=== PATIENT | female | born 1950 | race American Indian/Alaskan Native ===

== ENCOUNTER 2016-11-23 08:53 | Outpatient (CLI) | payer MEDICAID ==
--- NOTE | 2016-11-23 10:09 | Mammography Report ---
Bilateral mammogram: Compared to 10/26/15. CAD study utilized. Findings: Predominance of adipose tissue bilaterally. Benign calcifications bilaterally. No mass or microcalcification. Normal axilla. Impression: Benign findings. Annual followup recommended. BI-RADS CATEGORY: 2 = Benign ACR BI-RADS MAMMOGRAPHIC CODES: 0 = Needs additional imaging evaluation; 1 = Negative; 2 = Benign; 3 = Probably benign; 4 = Suspicious; 5 = Malignant; 6 = Known biopsy-proven malignancy COMMENT: 1. Dense breast tissue, i.e., adenosis, fibrocystic changes, etc., may obscure an underlying neoplasm. 2. Approximately 10% of cancers are not detected with mammography. 3. A negative mammography report should not delay biopsy if a clinically suspicious mass is present. COMMENT: Patient follow-up letters are generated in [employer].
== END 2016-11-23 08:54 | disposition home or self-care (01) ==
LOC: MAMMO 08:53
PROVIDERS: ATTEND Internal Medicine
DX: Z12.31 Encounter for screening mammogram for malignant neoplasm of breast (principal)
CPT/HCPCS: 77067; G0202

== ENCOUNTER 2016-12-07 09:35 | Emergency (ER) | payer MEDICARE ==
[2016-12-07 09:44] VITALS: BP 139/79
[2016-12-07] MEDS ORDERED: BOOSTRIX IM ONE (12:53)
--- NOTE | 2016-12-07 12:55 | Emergency Department Report ---
- General Chief complaint: Urogenital-Female Stated complaint: KNOT ON VAGINIA Time Seen by Provider: 12/07/16 11:16 Source: patient Mode of arrival: Ambulatory Limitations: No Limitations - History of Present Illness Initial comments: This is a 66-year-old female nontoxic, well nourished in appearance, no acute signs of distress presents to the ED complaining of nodular abscess in her right groin region x3 days. Patient denies any trauma to the region. Patient denies any pus or drainage. Denies any vaginal discharge, chest pain, shortness of breath, numbness, tingling, fever, chills, nausea or vomiting. Patient describes pain as throbbing with level of 810. Patient denies any allergies. Denies any trauma to the region. Past medical history includes asthma, congestive heart failure, ABDs, hypertension, and seizures. MD complaint: abscess/boil -: Gradual, days(s) (3) Tetanus Up to Date: unsure Location: genitals (right grown region) Severity: mild Severity scale (0 -10): 8 Quality: other (throbbing) Consistency: constant Improves with: none Worsens with: none Associated symptoms: denies other symptoms Treatments Prior to Arrival: none - Related Data Home Medications Medication Instructions Recorded Confirmed Last Taken ARIPiprazole [Abilify TAB] 20 mg PO QDAY 10/31/14 04/25/15 04/24/15 Brimonidine 0.15% [Alphagan P 1 drops OP Q8H 10/31/14 04/24/15 04/24/15 0.15%] Famotidine [Pepcid] 20 mg PO BID 10/31/14 04/24/15 04/24/15 Furosemide [Lasix TAB] 40 mg PO QDAY 10/31/14 04/24/15 04/24/15 Latanoprost 0.005% [Xalatan 0.005%] 1 drop OP QPM 10/31/14 04/24/15 04/24/15 Olanzapine [OLANZapine] 10 mg PO QHS 10/31/14 04/25/15 04/24/15 Potassium Chloride [K-Dur] 10 meq PO QDAY 10/31/14 04/25/15 04/24/15 Simvastatin [Zocor TAB] 40 mg PO QHS 09/07/1004/24/15 04/24/15 Solifenacin Succinate [Vesicare] 5 mg PO QDAY 10/31/14 04/25/15 10/31/14 glipiZIDE [Glucotrol] 10 mg PO QDAY 10/31/14 04/25/15 04/24/15 lamoTRIgine [LaMICtal] 25 mg PO BID 10/31/14 04/25/15 04/24/15 Previous Rx's Medication Instructions Recorded Last Taken Type Azithromycin [Zithromax Z-MAKEDA] 1 tab PO DAILY #1 tab 10/31/14 Unknown Rx Gabapentin [Neurontin] 300 mg PO Q8HR #15 capsule 04/14/15 04/24/15 Rx Metoprolol [Lopressor TAB] 25 mg PO BID #60 tablet 04/29/15 Unknown Rx Sulfamethoxazole/Trimethoprim 1 each PO BID #14 tablet 12/07/16 Unknown Rx [Bactrim Ds Tablet] Allergies Allergy/AdvReac Type Severity Reaction Status Date / Time No Known Allergies Allergy Verified 04/14/15 08:13 Abscess Boil HPI - HPI Chief Complaint: Urogenital-Female Stated Complaint: KNOT ON VAGINIA Time Seen by Provider: 12/07/16 11:16 Home Medications: Home Medications Medication Instructions Recorded Confirmed Last Taken ARIPiprazole [Abilify TAB] 20 mg PO QDAY 10/31/14 04/25/15 04/24/15 Brimonidine 0.15% [Alphagan P 1 drops OP Q8H 10/31/14 04/24/15 04/24/15 0.15%] Famotidine [Pepcid] 20 mg PO BID 10/31/14 04/24/15 04/24/15 Furosemide [Lasix TAB] 40 mg PO QDAY 10/31/14 04/24/15 04/24/15 Latanoprost 0.005% [Xalatan 0.005%] 1 drop OP QPM 10/31/14 04/24/15 04/24/15 Olanzapine [OLANZapine] 10 mg PO QHS 10/31/14 04/25/15 04/24/15 Potassium Chloride [K-Dur] 10 meq PO QDAY 10/31/14 04/25/15 04/24/15 Simvastatin [Zocor TAB] 40 mg PO QHS 0904/24/15 04/24/15 Solifenacin Succinate [Vesicare] 5 mg PO QDAY 10/31/14 04/25/15 10/31/14 glipiZIDE [Glucotrol] 10 mg PO QDAY 10/31/14 04/25/15 04/24/15 lamoTRIgine [LaMICtal] 25 mg PO BID 10/31/14 04/25/15 04/24/15 Previous Rx's Medication Instructions Recorded Last Taken Type Azithromycin [Zithromax Z-MAKEDA] 1 tab PO DAILY #1 tab 10/31/14 Unknown Rx Gabapentin [Neurontin] 300 mg PO Q8HR #15 capsule 04/14/15 04/24/15 Rx Metoprolol [Lopressor TAB] 25 mg PO BID #60 tablet 04/29/15 Unknown Rx Sulfamethoxazole/Trimethoprim 1 each PO BID #14 tablet 12/07/16 Unknown Rx [Bactrim Ds Tablet] Allergies/Adverse Reactions: Allergies Allergy/AdvReac Type Severity Reaction Status Date / Time No Known Allergies Allergy Verified 04/14/15 08:13 ED Review of Systems ROS: Stated complaint: KNOT ON VAGINIA Other details as noted in HPI Constitutional: denies: chills, fever Eyes: denies: eye pain, eye discharge, vision change ENT: denies: ear pain, throat pain Respiratory: denies: cough, shortness of breath, wheezing Cardiovascular: denies: chest pain, palpitations Endocrine: no symptoms reported Gastrointestinal: denies: abdominal pain, nausea, diarrhea Genitourinary: denies: urgency, dysuria, discharge Musculoskeletal: denies: back pain, joint swelling, arthralgia Skin: denies: rash, lesions Neurological: denies: headache, weakness, paresthesias Psychiatric: denies: anxiety, depression Hematological/Lymphatic: denies: easy bleeding, easy bruising ED Past Medical Hx - Past Medical History Previous Medical History?: Yes Hx Hypertension: Yes ("a long time ago") Hx Heart Attack/AMI: No Hx Congestive Heart Failure: Yes Hx Diabetes: Yes Hx Deep Vein Thrombosis: No Hx Seizures: Yes Hx Psychiatric Treatment: Yes ("NERVOUS") Hx Asthma: Yes Hx Dementia: No Hx HIV: No Additional medical history: GLAUCOMA. CHOLESTEROL - Surgical History Past Surgical History?: Yes Hx Coronary Stent: No Hx Pacemaker: No Hx Internal Defibrillator: No Additional Surgical History: left arm s/p fx. tubal ligation - Social History Smoking Status: Never Smoker Substance Use Type: None - Medications Home Medications: Home Medications Medication Instructions Recorded Confirmed Last Taken Type ARIPiprazole [Abilify TAB] 20 mg PO QDAY 10/31/14 04/25/15 04/24/15 History Azithromycin [Zithromax Z-MAKEDA] 1 tab PO DAILY #1 tab 10/31/14 04/25/15 Unknown Rx Brimonidine 0.15% [Alphagan P 1 drops OP Q8H 10/31/14 04/24/15 04/24/15 History 0.15%] Famotidine [Pepcid] 20 mg PO BID 10/31/14 04/24/15 04/24/15 History Furosemide [Lasix TAB] 40 mg PO QDAY 10/31/14 04/24/15 04/24/15 History Latanoprost 0.005% [Xalatan 0.005%] 1 drop OP QPM 10/31/14 04/24/15 04/24/15 History Olanzapine [OLANZapine] 10 mg PO QHS 10/31/14 04/25/15 04/24/15 History Potassium Chloride [K-Dur] 10 meq PO QDAY 10/31/14 04/25/15 04/24/15 History Simvastatin [Zocor TAB] 40 mg PO QHS 10/31/14 04/24/15 04/24/15 History Solifenacin Succinate [Vesicare] 5 mg PO QDAY 10/31/14 04/25/15 10/31/14 History glipiZIDE [Glucotrol] 10 mg PO QDAY 10/31/14 04/25/15 04/24/15 History lamoTRIgine [LaMICtal] 25 mg PO BID 10/31/14 04/25/15 04/24/15 History Gabapentin [Neurontin] 300 mg PO Q8HR #15 capsule 04/14/15 04/24/15 04/24/15 Rx Metoprolol [Lopressor TAB] 25 mg PO BID #60 tablet 04/29/15 Unknown Rx Sulfamethoxazole/Trimethoprim 1 each PO BID #14 tablet 12/07/16 Unknown Rx [Bactrim Ds Tablet] ED Physical Exam - General Limitations: No Limitations General appearance: alert, in no apparent distress - Head Head exam: Present: atraumatic, normocephalic, normal inspection - Eye Eye exam: Present: normal appearance, PERRL, EOMI. Absent: scleral icterus, conjunctival injection, nystagmus, periorbital swelling, periorbital tenderness Pupils: Present: normal accommodation - ENT ENT exam: Present: normal exam, normal orophraynx, mucous membranes moist, TM's normal bilaterally, normal external ear exam - Neck Neck exam: Present: normal inspection, full ROM. Absent: tenderness, meningismus, lymphadenopathy, thyromegaly - Respiratory Respiratory exam: Present: normal lung sounds bilaterally. Absent: respiratory distress, wheezes, rales, rhonchi, stridor, chest wall tenderness, accessory muscle use, decreased breath sounds, prolonged expiratory - Cardiovascular Cardiovascular Exam: Present: regular rate, normal rhythm, normal heart sounds. Absent: systolic murmur, diastolic murmur, rubs, gallop - GI/Abdominal GI/Abdominal exam: Present: soft, normal bowel sounds. Absent: distended, tenderness, guarding, rebound, rigid, diminished bowel sounds - Rectal Rectal exam: Present: deferred - External exam: Present: normal external exam, other (1 cm by 1 cm nodular abscess. No fluctuance or induration noted. Tender to touch. No pus or drainage. Chaperoned Shameka cardroom worker present during exam). Absent: erythema, swelling, lesions, lacerations, ecchymosis, bleeding - Extremities Exam Extremities exam: Present: normal inspection, full ROM, normal capillary refill. Absent: tenderness, pedal edema, joint swelling, calf tenderness - Back Exam Back exam: Present: normal inspection, full ROM. Absent: tenderness, CVA tenderness (R), CVA tenderness (L), muscle spasm, paraspinal tenderness, vertebral tenderness, rash noted - Neurological Exam Neurological exam: Present: alert, oriented X3, CN II-XII intact, normal gait, reflexes normal - Psychiatric Psychiatric exam: Present: normal affect, normal mood - Skin Skin exam: Present: warm, dry, intact, normal color. Absent: rash ED Course Vital Signs 12/07/16 09:41 Temperature 98.4 F Pulse Rate 59 L Respiratory 22 Rate Blood Pressure 139/79 O2 Sat by Pulse 99 Oximetry - Reevaluation(s) Reevaluation #1: 12/07/16 12:56 Patient is speaking in full sentences with no signs of distress noted. ED Medical Decision Making - Medical Decision Making 66-year-old female that presents with nodular abscess. There is no induration or fluctuance was noted. There is no pus or drainage. I instructed patient to return 24 hours to reassess of the abscess. I also educated the patient that is abscess becomes more swelling that they may need to be lanced and associated return to emergency room as soon as possible. Patient received Bactrim at discharge. She received tetanus in the ED. Patient was instructed to follow-up with a primary care doctor in 3-5 days or if symptoms worsen and continue return to emergency room as soon as possible possible. Patient is hemodynamically stable with stable vital signs. Patient states he is feeling better. At time time of discharge, the patient does not seem toxic or ill in appearance. No acute signs of distress noted. Patient agrees to discharge treatment plan of care. No further questions noted by the patient. Critical care attestation.: If time is entered above; I have spent that time in minutes in the direct care of this critically ill patient, excluding procedure time. ED Disposition Clinical Impression: Abscess Disposition: DC-01 TO HOME OR SELFCARE Is pt being admited?: No Does the pt Need Aspirin: No Condition: Stable Instructions: Abscess (ED), Sulfamethoxazole/Trimethoprim (By mouth) Additional Instructions: Return in 24 hours for us to reassess you abscess. If you're abscess becomes more swelling or there is pus or drainage return to emergency room as soon as possible because her as may be needs to be lanced. Follow-up with a primary care doctor in 3-5 days or if symptoms worsen and continue return to emergency room as soon as possible possible. Prescriptions: Sulfamethoxazole/Trimethoprim [Bactrim Ds Tablet] 1 each PO BID #14 tablet Referrals: PRIMARY MD ITZ [Primary Care Provider] - 3-5 Days [place] RAM MD [Staff Physician] - 3-5 Days [facility] [Outside] - 3-5 Days [facility] [Outside] - 3-5 Days Forms: Work/School Release Form(ED)
== END 2016-12-07 13:13 | disposition home or self-care (01) ==
LOC: ED 09:35
DX: L02.211 Cutaneous abscess of abdominal wall (principal); I10 Essential (primary) hypertension; E11.9 Type 2 diabetes mellitus without complications; J45.909 Unspecified asthma, uncomplicated
CPT/HCPCS: 90471; 90715; 99282

== ENCOUNTER 2017-01-03 09:34 | Emergency (ER) | payer MEDICARE ==
[2017-01-03 10:02] VITALS: BP 135/73
[2017-01-03] MEDS ORDERED: NORCO 5/325 PO ONE (15:08)
--- NOTE | 2017-01-03 15:13 | Emergency Department Report ---
ED Extremity Problem HPI - General Chief complaint: Extremity Injury, Lower Stated complaint: RIGHT THIGH PAIN, KNOT ON BIG TOE Time Seen by Provider: 01/03/17 14:57 Source: patient Mode of arrival: Ambulatory Limitations: No Limitations - History of Present Illness Initial comments: PT comes from a personal correction from R leg pain x 2 weeks. PT states she also has pain at [facility]. PT states in 1995, she had to have her toe nails removed due to the same pain. PT denies injury or trauma. MD Complaint: extremity pain -: Gradual, week(s) (two) Location: right, lower extremity History of Same: No Severity scale (0 -10): 8 Quality: sharp, constant Consistency: constant Improves with: medication (ultram ) Worsens with: weight bearing, walking, palpation Associated Symptoms: denies: chest pain, rash - Related Data Home Medications Medication Instructions Recorded Confirmed Last Taken ARIPiprazole [Abilify TAB] 20 mg PO QDAY 10/31/14 04/25/15 04/24/15 Brimonidine 0.15% [Alphagan P 1 drops OP Q8H 10/31/14 04/24/15 04/24/15 0.15%] Famotidine [Pepcid] 20 mg PO BID 10/31/14 04/24/15 04/24/15 Furosemide [Lasix TAB] 40 mg PO QDAY 10/31/14 04/24/15 04/24/15 Latanoprost 0.005% [Xalatan 0.005%] 1 drop OP QPM 10/31/14 04/24/15 04/24/15 Olanzapine [OLANZapine] 10 mg PO QHS 10/31/14 04/25/15 04/24/15 Potassium Chloride [K-Dur] 10 meq PO QDAY 10/31/14 04/25/15 04/24/15 Simvastatin [Zocor TAB] 40 mg PO QHS 10/31/14 04/24/15 04/24/15 Solifenacin Succinate [Vesicare] 5 mg PO QDAY 10/31/14 04/25/15 10/31/14 glipiZIDE [Glucotrol] 10 mg PO QDAY 10/31/14 04/25/15 04/24/15 lamoTRIgine [LaMICtal] 25 mg PO BID 10/31/14 04/25/15 04/24/15 Previous Rx's Medication Instructions Recorded Last Taken Type Gabapentin [Neurontin] 300 mg PO Q8HR #15 capsule 04/14/15 04/24/15 Rx Metoprolol [Lopressor TAB] 25 mg PO BID #60 tablet 04/29/15 Unknown Rx methOCARBAMOL [Robaxin TAB] 500 mg PO BID PRN #10 tablet 01/03/17 Unknown Rx Allergies Allergy/AdvReac Type Severity Reaction Status Date / Time No Known Allergies Allergy Verified 04/14/15 08:13 ED Review of Systems ROS: Stated complaint: RIGHT THIGH PAIN, KNOT ON BIG TOE Other details as noted in HPI Comment: All other systems reviewed and negative Constitutional: denies: fever, malaise, weakness Gastrointestinal: denies: abdominal pain, nausea, vomiting Musculoskeletal: myalgia. denies: back pain Skin: denies: rash ED Past Medical Hx - Past Medical History Previous Medical History?: Yes Hx Hypertension: Yes ("a long time ago") Hx Heart Attack/AMI: No Hx Congestive Heart Failure: Yes Hx Diabetes: Yes Hx Deep Vein Thrombosis: No Hx Seizures: Yes Hx Psychiatric Treatment: Yes ("NERVOUS") Hx Asthma: Yes Hx Dementia: No Hx HIV: No Additional medical history: GLAUCOMA. CHOLESTEROL - Surgical History Past Surgical History?: Yes Hx Coronary Stent: No Hx Pacemaker: No Hx Internal Defibrillator: No Additional Surgical History: left arm s/p fx. tubal ligation - Social History Smoking Status: Never Smoker Substance Use Type: Prescribed - Medications Home Medications: Home Medications Medication Instructions Recorded Confirmed Last Taken Type ARIPiprazole [Abilify TAB] 20 mg PO QDAY 10/31/14 04/25/15 04/24/15 History Brimonidine 0.15% [Alphagan P 1 drops OP Q8H 10/31/14 04/24/15 04/24/15 History 0.15%] Famotidine [Pepcid] 20 mg PO BID 10/31/14 04/24/15 04/24/15 History Furosemide [Lasix TAB] 40 mg PO QDAY 10/31/14 04/24/15 04/24/15 History Latanoprost 0.005% [Xalatan 0.005%] 1 drop OP QPM 10/31/14 04/24/15 04/24/15 History Olanzapine [OLANZapine] 10 mg PO QHS 10/31/14 04/25/15 04/24/15 History Potassium Chloride [K-Dur] 10 meq PO QDAY 10/31/14 04/25/15 04/24/15 History Simvastatin [Zocor TAB] 40 mg PO QHS 10/31/14 04/24/15 04/24/15 History Solifenacin Succinate [Vesicare] 5 mg PO QDAY 10/31/14 04/25/15 10/31/14 History glipiZIDE [Glucotrol] 10 mg PO QDAY 10/31/14 04/25/15 04/24/15 History lamoTRIgine [LaMICtal] 25 mg PO BID 10/31/14 04/25/15 04/24/15 History Gabapentin [Neurontin] 300 mg PO Q8HR #15 capsule 04/14/15 04/24/15 04/24/15 Rx Metoprolol [Lopressor TAB] 25 mg PO BID #60 tablet 04/29/15 Unknown Rx methOCARBAMOL [Robaxin TAB] 500 mg PO BID PRN #10 tablet 01/03/17 Unknown Rx ED Physical Exam - General Limitations: No Limitations General appearance: alert, in no apparent distress, obese - Head Head exam: Present: atraumatic, normocephalic, normal inspection - Eye Eye exam: Present: normal appearance. Absent: conjunctival injection - ENT ENT exam: Present: normal exam, mucous membranes moist, normal external ear exam - Neck Neck exam: Present: normal inspection, full ROM. Absent: tenderness - Respiratory Respiratory exam: Present: normal lung sounds bilaterally. Absent: respiratory distress, chest wall tenderness - Cardiovascular Cardiovascular Exam: Present: regular rate, normal rhythm - GI/Abdominal GI/Abdominal exam: Present: soft. Absent: tenderness - Extremities Exam Extremities exam: Present: normal inspection, tenderness. Absent: pedal edema, calf tenderness - Expanded Lower Extremity Exam Right Hip exam: Present: normal inspection, full ROM, tenderness. Absent: swelling, abrasion, erythema, shortening Upper Leg exam: Present: normal inspection Knee exam: Present: normal inspection, full ROM Foot/Toe exam: Present: full ROM, swelling (callus noted to great toe ). Absent : tenderness, subungual hematoma Neuro vascular tendon exam: Present: no vascular compromise Left Hip exam: Present: normal inspection, full ROM. Absent: tenderness Foot/Toe exam: Present: normal inspection, full ROM, swelling (callus noted to great toe ). Absent: tenderness Neuro vascular tendon exam: Present: no vascular compromise - Back Exam Back exam: Present: normal inspection, full ROM - Neurological Exam Neurological exam: Present: alert, oriented X3, normal gait - Expanded Neurological Exam Expanded Patient oriented to: Present: person, place, time Speech: Present: fluid speech Best Eye Response ([place]): (4) open spontaneously Best Motor Response ([place]): (6) obeys commands Best Verbal Response (Adrianna): (5) oriented [place] Total: 15 - Psychiatric Psychiatric exam: Present: normal affect, normal mood - Skin Skin exam: Present: warm, dry, intact, normal color. Absent: rash, erythema ED Course Vital Signs 01/03/17 09:58 Temperature 98.6 F Pulse Rate 58 L Respiratory 18 Rate Blood Pressure 135/73 O2 Sat by Pulse 99 Oximetry - Reevaluation(s) Reevaluation #1: 01/03/17 15:17 PT aware of plan of care. Reevaluation #2: 01/03/17 16:35 PT aware of US and XR results. PT has no questions at this time. - Pulse Oximetry Interpretation Digit-Finger Initial Pulse Oximetry Readin Actions Taken: none ED Medical Decision Making - Radiology Data Radiology results: report reviewed XR hip- nap, mild lumbar degenerative changes US RLE- No DVT - Differential Diagnosis sciatica, oa, dvt Critical Care Time: No Critical care attestation.: If time is entered above; I have spent that time in minutes in the direct care of this critically ill patient, excluding procedure time. ED Disposition Clinical Impression: Callus of foot Sciatica Qualifiers: Laterality: right Qualified Code(s): M54.31 - Sciatica, right side Disposition: - TO HOME OR SELFCARE Is pt being admited?: No Does the pt Need Aspirin: No Condition: Stable Instructions: Sciatica (ED) Additional Instructions: Continue your home medications Follow up with Podiatry in 3-5 days Follow up with PCP in 3-5 days Prescriptions: methOCARBAMOL [Robaxin TAB] 500 mg PO BID PRN #10 tablet PRN Reason: Muscle Spasm Referrals: KALEY MOBLEY MD [Primary Care Provider] - 3-5 Days CATE CHAVEZ MD [Staff Physician] - 3-5 Days Time of Disposition: 16:44
--- NOTE | 2017-01-03 15:49 | XRay Report ---
RIGHT HIP RADIOGRAPHS INDICATION: Right hip pain, tenderness for 1 week. No known injury. COMPARISON: None similar. FINDINGS: An AP pelvic radiograph with frog-leg projection of the right hip demonstrate normal femoral head contour. Mild degenerative hip narrowing possible, right more than left. Imaged bilateral SI and hip joints appear intact. Nonobstructive bowel gas pattern. A 1.2 cm coiled spring-like density projecting in the right lower quadrant though nonspecific for being intrinsic versus outside the patient. Few pelvic phleboliths. Lower lumbar degenerative changes. CONCLUSION: No acute right hip radiographic abnormality with various degenerative changes noted as also a nonspecific spring-like density projecting in the right lower quadrant. Please correlate. Thank you for the opportunity to participate in this patient's care.
--- NOTE | 2017-01-04 14:20 | Vascular Lab Report ---
Right Lower Extremity Venous Duplex Study: Reason for Exam: Pain of the right lower extremity. Comments on the Right: All veins visualized are freely compressible without evidence of internal echogenicity. Flow is spontaneous and phasic throughout. No evidence of acute or chronic thrombus is seen in any of the vessels visualized. Comments on the Left: A limited duplex study was done of the proximal veins of the left lower extremity. All veins visualized are freely compressible without evidence of internal echogenicity. Flow is spontaneous and phasic throughout. No evidence of acute or chronic thrombus is seen in any of the vessels visualized. Impression: No evidence of acute or chronic deep venous thrombosis in the right lower extremity.
== END 2017-01-03 17:59 | disposition home or self-care (01) ==
LOC: ED 09:34
DX: L84 Corns and callosities (principal); M54.31 Sciatica, right side; I10 Essential (primary) hypertension; R56.9 Unspecified convulsions; J45.909 Unspecified asthma, uncomplicated; E78.00 Pure hypercholesterolemia, unspecified

== ENCOUNTER 2017-03-02 08:26 | Emergency (ER) | payer MEDICARE ==
[2017-03-02 08:55] VITALS: BP 146/89
[2017-03-02 09:50] LABS: Basophils # (Auto) 0.1 K/mm3 (0.0-0.1); Eosinophils # (Auto) 0.2 K/mm3 (0.0-0.4); Eosinophils % (Auto) 3.3 % (0.0-4.3); Hematocrit 35.1 % (30.3-42.9); Hemoglobin 11.2 gm/dl (10.1-14.3); Lymphocytes # (Auto) 1.4 K/mm3 (1.2-5.4); Lymphocytes % (Auto) 28.7 % (13.4-35.0); Mean Corpuscular HGB Conc 32 % (30-34); Mean Corpuscular Hemoglobin 31 pg (28-32); Mean Corpuscular Volume 97 fl (79-97); Monocytes # (Auto) 0.7 K/mm3 (0.0-0.8); Monocytes % (Auto) 14.3 % (0.0-7.3); Platelet Count 169 K/mm3 (140-440); Red Blood Count 3.62 M/mm3 (3.65-5.03); Red Cell Distribution Width 14.7 % (13.2-15.2)
[2017-03-02 09:59] LABS: Calcium 9.2 mg/dL (8.4-10.2)
--- NOTE | 2017-03-02 10:22 | XRay Report ---
Chest 2 views: History: Shortness of breath. Findings: Cardiomegaly. Trachea is midline. No consolidation, pneumothorax or pleural effusion. Impression: Cardiomegaly. No acute lung changes.
== END 2017-03-02 19:25 | disposition left against medical advice (07) ==
LOC: ED 08:26
DX: M79.1 Myalgia (principal); Z53.21 Procedure and treatment not carried out due to patient leaving prior to being seen by health care provider
CPT/HCPCS: 36415; 71046; 80048; 85025; 93005; 93010

== ENCOUNTER 2017-04-04 18:53 | Emergency (ER) | payer MEDICARE ==
[2017-04-04 19:12] VITALS: BP 203/110
== END 2017-04-05 00:05 | disposition left against medical advice (07) ==
LOC: ED 18:53
DX: R22.1 Localized swelling, mass and lump, neck (principal); Z53.21 Procedure and treatment not carried out due to patient leaving prior to being seen by health care provider

== ENCOUNTER 2017-04-24 16:37 | Emergency (ER) | payer MEDICARE ==
[2017-04-24] MEDS ORDERED: ASPIRIN PO ONE (16:58)
[2017-04-24] MEDS ORDERED: TYLENOL PO ONE (17:48)
--- NOTE | 2017-04-24 18:05 | XRay Report ---
FINAL REPORT EXAM: XR CHEST 1V AP HISTORY: chest pain TECHNIQUE: AP portable view of the chest PRIORS: None. FINDINGS: Lines, tubes, and devices: N/A Lungs and pleura: Trachea is normal in position. Linear scarring in the left midlung zone is seen laterally. Lungs are clear of infiltrate, pleural effusion, vascular congestion, or pneumothorax. Cardiomediastinal silhouette: Cardiac and mediastinal silhouettes are unremarkable. Other: Bony structures are intact. IMPRESSION: No acute cardiopulmonary process seen.
[2017-04-24 18:14] LABS: Basophils % (Auto) 0.9 % (0.0-1.8); Eosinophils # (Auto) 0.1 K/mm3 (0.0-0.4); Eosinophils % (Auto) 1.2 % (0.0-4.3); Hematocrit 35.5 % (30.3-42.9); Hemoglobin 11.4 gm/dl (10.1-14.3); Lymphocytes # (Auto) 1.4 K/mm3 (1.2-5.4); Lymphocytes % (Auto) 24.5 % (13.4-35.0); Mean Corpuscular HGB Conc 32 % (30-34); Mean Corpuscular Hemoglobin 30 pg (28-32); Mean Corpuscular Volume 94 fl (79-97); Monocytes # (Auto) 0.6 K/mm3 (0.0-0.8); Monocytes % (Auto) 10.9 % (0.0-7.3); Platelet Count 189 K/mm3 (140-440); Red Blood Count 3.77 M/mm3 (3.65-5.03); Red Cell Distribution Width 14.2 % (13.2-15.2)
[2017-04-24 18:26] LABS: BUN/Creatinine Ratio 20; Blood Urea Nitrogen 30 mg/dL (7-17); Calcium 9.4 mg/dL (8.4-10.2); Hemolysis Index 14
[2017-04-24] MEDS ORDERED: NACL 0.9% 500 ML 500 ML IV ONE (22:33)
--- NOTE | 2017-04-25 00:29 | Emergency Department Report ---
HPI - General Chief Complaint: Chest Pain Time Seen by Provider: 04/24/17 17:26 - HPI HPI: The patient's is a 66-year-old female presents for evaluation of chest pain. The patient reports chest pain for the past 2-3 days, mild in severity, right- sided in location, aching in quality, radiating to the right arm, and is exacerbated with movement. The patient denies fever, cough, syncope, hemoptysis , unilateral leg swelling, recent immobilization, history of DVT or PE, recent cancer. ED Past Medical Hx - Past Medical History Previous Medical History?: Yes Hx Hypertension: Yes Hx Heart Attack/AMI: No Hx Congestive Heart Failure: Yes Hx Diabetes: Yes Hx Deep Vein Thrombosis: No Hx Seizures: Yes Hx Psychiatric Treatment: Yes ("NERVOUS") Hx Asthma: Yes Hx Dementia: No Hx HIV: No Additional medical history: GLAUCOMA. CHOLESTEROL. brochitis - Surgical History Hx Coronary Stent: No Hx Pacemaker: No Hx Internal Defibrillator: No Additional Surgical History: left arm s/p fx. tubal ligation - Social History Smoking Status: Never Smoker Substance Use Type: None - Medications Home Medications: Home Medications Medication Instructions Recorded Confirmed Last Taken Type Olanzapine [OLANZapine] 10 mg PO QHS 10/31/14 04/16/17 04/16/17 History Simvastatin [Zocor TAB] 40 mg PO QHS 10/31/14 04/16/17 04/16/17 History Albuterol Sulfate [Proventil Hfa] 6.7 gm IH PRN 04/16/17 04/16/17 04/16/17 History Fluticasone [Flonase] 1 spray NS QDAY 04/16/17 04/16/17 04/16/17 History Gabapentin [Neurontin] 100 mg PO Q8HR 04/16/17 04/16/17 04/16/17 History Omeprazole 20 mg PO DAILY 04/16/17 04/16/17 04/16/17 History Topiramate [Topamax] 100 mg PO QAM 04/16/17 04/16/17 04/16/17 History lamoTRIgine [LaMICtal] 100 mg PO BID 04/16/17 04/16/17 04/16/17 History Aspirin [Lo-Dose Aspirin EC] 81 mg PO DAILY #30 tablet. 04/22/17 Unknown Rx Carvedilol [Coreg] 3.125 mg PO BID #60 tablet 04/22/17 Unknown Rx Glimepiride [Amaryl] 2 mg PO QDDIAB #60 tablet 04/22/17 Unknown Rx LORazepam [Ativan] 1 mg PO BID #7 tablet 04/22/17 Unknown Rx NIFEdipine XL [Procardia Xl] 90 mg PO QDAY #60 tablet 04/22/17 Unknown Rx hydrALAZINE [Apresoline TAB] 100 mg PO TID #90 tab 04/22/17 Unknown Rx oxyCODONE /ACETAMINOPHEN [Percocet 1 tab PO Q6H PRN #14 tablet 04/22/17 Unknown Rx 5/325 mg] ED Review of Systems ROS: Stated complaint: CHEST PAIN Other details as noted in HPI Constitutional: denies: fever ENT: denies: throat or neck pain Respiratory: denies: cough, shortness of breath Cardiovascular: reports chest pain Endocrine: denies unexplained weight loss or gain Gastrointestinal: denies: abdominal pain, nausea Genitourinary: denies: dysuria Musculoskeletal: denies: leg swelling Skin: denies: rash Neurological: denies: headache Hematological/Lymphatic: denies: easy bleeding or easy bruising Psych: denies sadness or hopelessness Physical Exam - Physical Exam Vital Signs: Vital Signs 04/24/17 04/24/17 04/24/17 17:16 17:17 18:30 Temperature 97.9 F Pulse Rate 56 L 56 L 68 Respiratory 14 12 16 Rate Blood Pressure 192/95 Blood Pressure 179/89 [Right] O2 Sat by Pulse 95 100 Oximetry Physical Exam: General: well-nourished, well-developed, no acute distress Head: Normocephalic, atraumatic Eyes: normal sclera ENT: Mucous membranes are pink and moist Neck: trachea midline, neck supple, No neck stiffness, no cervical adenopathy Respiratory: Breath sounds equal bilaterally, no wheezing, rales, or rhonchi Cardio: S1 and S2 present, no murmurs, rubs, gallops, capillary refill is brisk Abdomen: Normoactive bowel sounds, soft abdomen, no rigidity, no guarding or rebound tenderness Chest WALL/Back: No tenderness to palpation of the chest wall, no CVA tenderness with percussion Musc: No pitting edema Skin: No rash Neuro: no facial drooping, normal speech Psych: Normal affect ED Course Vital Signs 04/24/17 04/24/17 04/24/17 17:16 17:17 18:30 Temperature 97.9 F Pulse Rate 56 L 56 L 68 Respiratory 14 12 16 Rate Blood Pressure 192/95 Blood Pressure 179/89 [Right] O2 Sat by Pulse 95 100 Oximetry ED Medical Decision Making - Lab Data Result diagrams: 04/24/17 17:59 04/24/17 17:59 - Medical Decision Making The patient was seen and examined by myself. The patient is placed on a cardiac cath tech and continuous pulse ox. On initial evaluation, the patient was found to be in no distress. Evaluation orders were placed. Medical records were reviewed and revealed that the patient received a negative stress test and low probability ventilation/perfusion scan for PE 3 days ago during hospital stay here. EKG was negative for findings suggestive of acute cardiac infarct. Labs and imaging are obtained. Chest x-ray is negative for pneumothorax, focal consolidation, pulmonary vascular congestion, pleural effusion, or other obvious acute cardiopulmonary disease process. Lab results exhibited mildly elevated creatinine 1.5, consistent with the patient's history of chronic kidney disease, and otherwise labs were non-concerning including levels of troponin, WBC, hemoglobin, hematocrit, electrolytes, renal function. The patient was reevaluated and reported that their symptoms were markedly improved. The patient has no chest pain whatsoever. The patient is stable for discharge with outpatient follow-up. The patient is given follow-up and return instructions. The patient expressed understanding and agreed with the plan. The patient is discharged in stable condition. Critical care attestation.: If time is entered above; I have spent that time in minutes in the direct care of this critically ill patient, excluding procedure time. ED Disposition Clinical Impression: Acute chest pain, Dehydration, mild, CKD (chronic kidney disease), stage I Disposition: DC-01 TO HOME OR SELFCARE Is pt being admited?: No Does the pt Need Aspirin: No Condition: Stable Instructions: Chest Pain (ED), Costochondritis (ED) Referrals: PRIMARY CARE, [Primary Care Provider] - 3-5 Days ELENA MCCORMICK MD [Staff Physician] - 3-5 Days Time of Disposition: 00:25
[2017-04-25 00:57] VITALS: BP 173/83
--- NOTE | 2017-04-25 01:41 | Emergency Department Report ---
Blank Doc - Documentation Documentation: I was asked by the nurse to evaluate Ms. Frank before discharge. Nurse is concerning about the shaking that patient has been having since she got to the hospital and that was not pain addressed. Caregiver at bedside stating that patient has been having this shaking for the last 2-3 days. She is complaining of right thigh pain and according to her caregiver this is how her chronic pain. Patient has history of seizure on Lamictal and Topamax. Patient is talking and answering question appropriately. CT brain and a UA was ordered. Shaking movement is completely stopped by Ativan. CT brain is negative for acute finding. Patient discharged home as planned by Dr. Hooper. Referring Physician: IRMA WEATHERS Patient Name: KRYSTINA ZUNIGA Date of : 1950 Sex: Female Report Date: 2017-04-25 Report Status: [place] [address] Cat Scan Report Signed Patient: KRYSTINA ZUNIGA MR#: [id number] : 1950 Acct:[id number] Age/Sex: 66 / F ADM Date: 04/24/17 Loc: ED Attending Dr: Ordering Physician: IRMA WEATHERS Date of Service: 04/25/17 Procedure(s): CT head/brain wo con Accession Number(s): [id number] cc: IRMA WEATHERS FINAL REPORT EXAM: CT HEAD/BRAIN WO CON HISTORY: seizure COMPARISON: None available. TECHNIQUE: Axial images obtained skull base through vertex. FINDINGS: No acute intracranial hemorrhage, midline shift or pathologic extra axial fluid collection. Age related volume loss with compensatory dilatation of the ventricular system and chronic small vessel ischemic disease. Otherwise, florentino-white differentiation preserved. Calvarium grossly intact. Mild mucosal thickening the paranasal sinuses. Mastoid air cells are clear. IMPRESSION: No grossly acute intracranial abnormality. Mild age related volume loss and chronic small vessel ischemic disease. Transcribed By: HUNG Dictated By: MARCELA ROSE MD Electronically Authenticated By: MARCELA ROSE MD Signed Date/Time: 04/25/17256 DD/ 6 TD/TT: 04/25/17256
[2017-04-25] MEDS ORDERED: ATIVAN ONE (01:58)
[2017-04-25] MEDS ORDERED: ATIVAN IM ONE (02:02)
[2017-04-25 02:09] LABS: Bacteria,Urine 2+ /HPF (Negative); Bilirubin,Urine NEG (Negative); Blood,Urine NEG (Negative); Color,Urine Straw (Yellow); RBC,Urine < 1.0 /HPF (0.0-6.0); Urobilinogen,Urine < 2.0 mg/dL (<2.0)
--- NOTE | 2017-04-25 03:01 | Cat Scan Report ---
FINAL REPORT EXAM: CT HEAD/BRAIN WO CON HISTORY: seizure COMPARISON: None available. TECHNIQUE: Axial images obtained skull base through vertex. FINDINGS: No acute intracranial hemorrhage, midline shift or pathologic extra axial fluid collection. Age related volume loss with compensatory dilatation of the ventricular system and chronic small vessel ischemic disease. Otherwise, florentino-white differentiation preserved. Calvarium grossly intact. Mild mucosal thickening the paranasal sinuses. Mastoid air cells are clear. IMPRESSION: No grossly acute intracranial abnormality. Mild age related volume loss and chronic small vessel ischemic disease.
== END 2017-04-25 08:55 | disposition home or self-care (01) ==
LOC: ED 16:37
DX: E86.0 Dehydration (principal); E11.22 Type 2 diabetes mellitus with diabetic chronic kidney disease; I13.0 Hypertensive heart and chronic kidney disease with heart failure and stage 1 through stage 4 chronic kidney disease, or unspecified chronic kidney disease; N18.1 Chronic kidney disease, stage 1; I50.9 Heart failure, unspecified; H40.9 Unspecified glaucoma; R56.9 Unspecified convulsions; Z98.51 Tubal ligation status
CPT/HCPCS: 36415; 70450; 71045; 80048; 81001; 84484; 85025; 93005; 93010; 96372; 99285; J2060

== ENCOUNTER 2017-05-23 13:16 | Outpatient (CLI) | payer MEDICARE ==
[2017-05-23 14:23] LABS: Albumin 3.9 g/dL (3.9-5); Calcium 8.9 mg/dL (8.4-10.2)
[2017-05-23 18:26] LABS: Bacteria,Urine 1+ /HPF (Negative); Bilirubin,Urine NEG (Negative); Blood,Urine NEG (Negative); Color,Urine Yellow (Yellow); Protein,Urine <15 mg/dL mg/dL (Negative); RBC,Urine < 1.0 /HPF (0.0-6.0); Urobilinogen,Urine < 2.0 mg/dL (<2.0)
== END 2017-05-23 13:17 | disposition home or self-care (01) ==
LOC: LAB 13:16
PROVIDERS: ATTEND Internal Medicine Nephrology
DX: N17.9 Acute kidney failure, unspecified (principal); I11.0 Hypertensive heart disease with heart failure; I50.9 Heart failure, unspecified; E11.9 Type 2 diabetes mellitus without complications; E78.00 Pure hypercholesterolemia, unspecified; J45.909 Unspecified asthma, uncomplicated
CPT/HCPCS: 36415; 80048; 81001; 82040; 84100

== ENCOUNTER 2017-11-26 11:32 | Outpatient (CLI) | payer MEDICARE ==
--- NOTE | 2017-11-26 13:54 | Mammography Report ---
BILATERAL DIGITAL SCREENING MAMMOGRAM with CAD: 11/26/17 11:32:00 CLINICAL: Routine screening. COMPARISON:01/03/17 FINDINGS: The breasts are almost entirely fatty. No mass, architectural distortion or suspicious calcifications. IMPRESSION: No mammographic evidence of malignancy. BI-RADS CATEGORY: 2 -- Benign RECOMMENDATION: Routine mammographic screening in one year. COMMENT: Patient follow-up letters are generated by our [employer] application.
== END 2017-11-26 11:33 | disposition home or self-care (01) ==
LOC: MAMMO 11:32
PROVIDERS: ATTEND Internal Medicine
DX: Z12.31 Encounter for screening mammogram for malignant neoplasm of breast (principal); E11.9 Type 2 diabetes mellitus without complications; E78.5 Hyperlipidemia, unspecified; I11.0 Hypertensive heart disease with heart failure; I50.9 Heart failure, unspecified; E78.00 Pure hypercholesterolemia, unspecified; J45.909 Unspecified asthma, uncomplicated
CPT/HCPCS: 77067

== ENCOUNTER 2018-09-22 11:06 | Emergency (ER) | payer MEDICARE ==
--- NOTE | 2018-09-22 12:57 | Emergency Department Report ---
ED General Adult HPI - General Chief complaint: Abdominal Pain Stated complaint: BOTH LEGS NUMB/ABD PAIN Time Seen by Provider: 09/22/18 11:56 Source: EMS Mode of arrival: Stretcher Limitations: No Limitations - History of Present Illness Initial comments: 67 year old female the past medical history diabetes and hypertension presents to the hospital complaints of painful rash to lower abdomen in groin area time 5 days and numbness to bilateral thigh since last night. Patient was given a cream to apply to her lower abdomen/groin rash which she has been using for the past 3 days. She ran out of cream last night and states that the rash is getting worse rather than better. It is painful to touch. Says last night she had intermittent bilateral thigh numbness. The numbness is not extend below the knee. He complains of ongoing lower back pain for the last 3 months without any reported trauma or injury. She denies urinary or fecal incontinence, inability to walk, or leg weakness. - Related Data Home Medications Medication Instructions Recorded Confirmed Last Taken OLANZapine 10 mg PO QHS 10/31/14 04/16/17 04/16/17 Simvastatin [Zocor TAB] 40 mg PO QHS 10/31/14 04/16/17 04/16/17 Albuterol Sulfate [Proventil Hfa] 6.7 gm IH PRN 04/16/17 04/16/17 04/16/17 Fluticasone [Flonase] 1 spray NS QDAY 04/16/17 04/16/17 04/16/17 Gabapentin [Neurontin] 100 mg PO Q8HR 04/16/17 04/16/17 04/16/17 Omeprazole 20 mg PO DAILY 04/16/17 04/16/17 04/16/17 Topiramate [Topamax] 100 mg PO QAM 04/16/17 04/16/17 04/16/17 lamoTRIgine [LaMICtal] 100 mg PO BID 04/16/17 04/16/17 04/16/17 Previous Rx's Medication Instructions Recorded Last Taken Type Aspirin [Lo-Dose Aspirin EC] 81 mg PO DAILY #30 tablet. 04/22/17 Unknown Rx Carvedilol [Coreg] 3.125 mg PO BID #60 tablet 04/22/17 Unknown Rx Glimepiride [Amaryl] 2 mg PO QDDIAB #60 tablet 04/22/17 Unknown Rx LORazepam [Ativan] 1 mg PO BID #7 tablet 04/22/17 Unknown Rx NIFEdipine XL [Procardia Xl] 90 mg PO QDAY #60 tablet 04/22/17 Unknown Rx hydrALAZINE [Apresoline TAB] 100 mg PO TID #90 tab 04/22/17 Unknown Rx oxyCODONE /ACETAMINOPHEN [Percocet 1 tab PO Q6H PRN #14 tablet 04/22/17 Unknown Rx 5/325 mg] Clotrimazole 1% [Lotrimin 1%] 1 applic TP BID 30 Days tube 09/22/18 Unknown Rx Fluconazole [Diflucan TAB] 150 mg PO QWEEK #4 tablet 09/22/18 Unknown Rx traMADol [Ultram 50 MG tab] 50 mg PO Q6HR PRN #20 tablet 09/22/18 Unknown Rx Allergies Allergy/AdvReac Type Severity Reaction Status Date / Time No Known Allergies Allergy Verified 04/16/17 11:11 ED Review of Systems ROS: Stated complaint: BOTH LEGS NUMB/ABD PAIN Other details as noted in HPI Comment: All other systems reviewed and negative ED Past Medical Hx - Past Medical History Hx Hypertension: Yes Hx Heart Attack/AMI: No Hx Congestive Heart Failure: Yes Hx Diabetes: Yes Hx Deep Vein Thrombosis: No Hx Seizures: Yes Hx Psychiatric Treatment: Yes ("NERVOUS") Hx Asthma: Yes Hx Dementia: No Hx HIV: No Additional medical history: GLAUCOMA. CHOLESTEROL. brochitis - Surgical History Hx Coronary Stent: No Hx Pacemaker: No Hx Internal Defibrillator: No Additional Surgical History: left arm s/p fx. tubal ligation - Social History Smoking Status: Never Smoker - Medications Home Medications: Home Medications Medication Instructions Recorded Confirmed Last Taken Type OLANZapine 10 mg PO QHS 10/31/14 04/16/17 04/16/17 History Simvastatin [Zocor TAB] 40 mg PO QHS 10/31/14 04/16/17 04/16/17 History Albuterol Sulfate [Proventil Hfa] 6.7 gm IH PRN 04/16/17 04/16/17 04/16/17 History Fluticasone [Flonase] 1 spray NS QDAY 04/16/17 04/16/17 04/16/17 History Gabapentin [Neurontin] 100 mg PO Q8HR 04/16/17 04/16/17 04/16/17 History Omeprazole 20 mg PO DAILY 04/16/17 04/16/17 04/16/17 History Topiramate [Topamax] 100 mg PO QAM 04/16/17 04/16/17 04/16/17 History lamoTRIgine [LaMICtal] 100 mg PO BID 04/16/17 04/16/17 04/16/17 History Aspirin [Lo-Dose Aspirin EC] 81 mg PO DAILY #30 tablet. 04/22/17 Unknown Rx Carvedilol [Coreg] 3.125 mg PO BID #60 tablet 04/22/17 Unknown Rx Glimepiride [Amaryl] 2 mg PO QDDIAB #60 tablet 04/22/17 Unknown Rx LORazepam [Ativan] 1 mg PO BID #7 tablet 04/22/17 Unknown Rx NIFEdipine XL [Procardia Xl] 90 mg PO QDAY #60 tablet 04/22/17 Unknown Rx hydrALAZINE [Apresoline TAB] 100 mg PO TID #90 tab 04/22/17 Unknown Rx oxyCODONE /ACETAMINOPHEN [Percocet 1 tab PO Q6H PRN #14 tablet 04/22/17 Unknown Rx 5/325 mg] Clotrimazole 1% [Lotrimin 1%] 1 applic TP BID 30 Days tube 09/22/18 Unknown Rx Fluconazole [Diflucan TAB] 150 mg PO QWEEK #4 tablet 09/22/18 Unknown Rx traMADol [Ultram 50 MG tab] 50 mg PO Q6HR PRN #20 tablet 09/22/18 Unknown Rx ED Physical Exam - General Limitations: No Limitations - Other Other exam information: General: No limitations, patient is alert in no acute distress Head exam: Atraumatic, normocephalic Eyes exam: Normal appearance, pupils equal reactive to light, extraocular movements intact ENT: Moist mucous membrane, normal oropharynx Neck exam: Normal inspection, full range of motion, no meningismus nontender Respiratory exam: Clear to auscultation bilateral, no wheezes, rales, crackles Cardiovascular: Normal rate and rhythm Abdomen: Soft, nondistended, and nontender, with normal bowel sounds, no rebound, or guarding Extremity: Full range of motion normal inspection no deformity Back: Normal Inspection, full range of motion, no tenderness Neurologic: Alert, oriented x3, cranial nerves intact, no motor deficit. Decrease sensation to touch and pin prick at the anterior and anterior lateral thighs corresponding to the L1-L2 dermatomes of both legs. Sensation to the rest of the thigh and leg intact. Psychiatric: normal affect, normal mood Skin: Patient has intertriginous dermatitis of the lower abdominal and inguinal area. area is red with some superficial abrasions. malodoous. white cream in some areas (placed by pt last night) ED Course Vital Signs 09/22/18 09/22/18 09/22/18 12:07 12:31 13:14 Temperature 98.4 F Pulse Rate 74 68 Respiratory 18 18 18 Rate Blood Pressure 136/64 Blood Pressure 126/62 134/62 [Right] O2 Sat by Pulse 100 100 Oximetry 09/22/18 09/22/18 14:34 15:19 Temperature Pulse Rate 74 62 Respiratory 18 18 Rate Blood Pressure Blood Pressure 128/65 134/68 [Right] O2 Sat by Pulse 100 100 Oximetry - Consultations Consultation #1: 09/22/18 15:39 case d/w with Dr Tadeo dave, oupt f/u appropriate. pt june f/u in office for further workup. ED Medical Decision Making - Lab Data Result diagrams: 09/22/18 13:11 09/22/18 13:11 Lab Results 09/22/18 09/22/18 09/22/18 Range/Units 13:11 13:11 13:13 WBC 6.3 (4.5-11.0) K/mm3 RBC 3.99 (3.65-5.03) M/mm3 Hgb 12.3 (10.1-14.3) gm/dl Hct 38.5 (30.3-42.9) % MCV 96 (79-97) fl MCH 31 (28-32) pg MCHC 32 (30-34) % RDW 14.3 (13.2-15.2) % Plt Count 149 (140-440) K/mm3 Lymph % (Auto) 16.7 (13.4-35.0) % Branch % (Auto) 11.9 H (0.0-7.3) % Eos % (Auto) 1.0 (0.0-4.3) % Baso % (Auto) 0.5 (0.0-1.8) % Lymph # 1.0 L (1.2-5.4) K/mm3 Branch # 0.8 (0.0-0.8) K/mm3 Eos # 0.1 (0.0-0.4) K/mm3 Baso # 0.0 (0.0-0.1) K/mm3 Seg Neutrophils % 69.9 (40.0-70.0) % Seg Neutrophils # 4.4 (1.8-7.7) K/mm3 Sodium 141 (137-145) mmol/L Potassium 4.0 (3.6-5.0) mmol/L Chloride 103.0 (98-107) mmol/L Carbon Dioxide 25 (22-30) mmol/L Anion Gap 17 mmol/L BUN 23 H (7-17) mg/dL Creatinine 2.1 H (0.7-1.2) mg/dL Estimated GFR 29 ml/min BUN/Creatinine Ratio 11 % Glucose 125 H (65-100) mg/dL Calcium 9.5 (8.4-10.2) mg/dL Magnesium 2.10 (1.7-2.3) mg/dL Total Bilirubin 0.20 (0.1-1.2) mg/dL Direct Bilirubin < 0.2 (0-0.2) mg/dL Indirect Bilirubin 0.0 mg/dL AST 11 (5-40) units/L ALT 8 (7-56) units/L Alkaline Phosphatase 88 (35-129) units/L Total Protein 8.6 H (6.3-8.2) g/dL Albumin 4.2 (3.9-5) g/dL Albumin/Globulin Ratio 1.0 % - Radiology Data Radiology results: report reviewed CLINICAL DATA: lower back pain, b/l thigh numbness TECHNICAL DATA: AP and lateral views lumbar spine. FINDINGS: The bone mineralization is decreased. Multiple compression fractures are present involving the lumbar spine, age difficult to determine. Intervertebral disc spaces are well maintained except for narrowing L5-S1. Pedicles and spinous processes are normal in alignment. SI joints and sacrum are normal. IMPRESSION: Multiple compression fractures lumbar spine age difficult to determine. MR would be of benefit for further evaluation CT lumbar spine wo con INDICATION / CLINICAL INFORMATION: 67 years Female; back pain (chronic), new b/l anterior thigh numb. TECHNIQUE: Axial CT images of the lumbar spine were obtained. Sagittal and coronal reformatted images were produced. All CT scans at this location are performed using CT dose reduction for ALARA by means of automated exposure control. COMPARISON: None available. FINDINGS: POST-SURGICAL CHANGES: None. ALIGNMENT: There is dextroscoliosis seen with apex at L2. Straightening of the lumbar spine noted. VERTEBRAE: There is loss of height at virtually every level in the lumbar spine, most findings be related to large Schmorl's node superiorly. These findings may be on a chronic degenerative basis. No definitive signs of acute compression seen, although STIR imaging by MRI would be the most sensitive test for evaluating for an acute or subacute injury. [id number] ANALYSIS: Disc space narrowing and desiccation seen at L5-S1. T12-L1: Mild facet hypertrophy. Small, broad-based foraminal disc trusion on the right without significant sequela. L1-2: Mild disc bulge and [id number] facet hypertrophy. Mild thecal sac narrowing. Mild foraminal narrowing-findings are slightly greater on the left. There is encroachment upon the left L1 nerve without impingement. L2-3: Mild to moderate disc bulge and whwz-el-hcfgaudx facet hypertrophy. Mild to moderate thecal sac narrowing seen. Mild lateral recess narrowing on the left from disc disease. Moderate foraminal narrowing seen bilaterally with encroachment upon L2 nerves. No impingement seen. L3-4: Moderate disc bulge. Broad-based left lateral recess/foraminal/extra foraminal disc protrusion on the right. Vdpy-bx-[id number] facet hypertrophy noted. There is moderate thecal sac narrowing and lateral recess narrowing seen, which could affect descending L4 nerves. Moderate foraminal narrowing is seen bilaterally - greater on the left. Findings could affect the L3 nerves. L4-5: Mild to moderate disc bulge. Moderate facet borderline ligamentum flavum hypertrophy. Moderate thecal sac narrowing seen. Probable lateral recess narrowing suggested bilaterally. Moderate to marked foraminal narrowing is seen on the right from disc disease and facet hypertrophy. Moderate noted on the left. Findings certainly could affect the right L4 nerve. L5-S1: Mild disc bulge. Moderate foraminal narrowing is seen on the left and moderate to marked on the right from disc disease with spondylosis, combined with facet hypertrophy. There is marked flattening of the right L5 nerve. Mild flattening the left L5 nerve noted as well. PARASPINAL SOFT TISSUES: No significant abnormality. ADDITIONAL FINDINGS: Surgical clips seen in the right abdomen. IMPRESSION: 1. Multilevel degenerative changes of the lumbar spine as described above. Exiting and/or descending nerve roots could be affected at multiple levels. Please correlate with dermatomal distribution of patient's symptoms, if present. - Medical Decision Making pt has renal insufficiency which is stable. Patient has bad tenia chikis infection and will be treated with oral and topical agents. Patient has chronic back pain with findings of significant DJD with radicular pain/numbness. There are no weakness and clinical signs of cauda equina syndrome. After discussion with Dr. Piedra orthopedics patient be discharged for follow-up regarding her back findings and neurologic complaint. Medication for pain while also be provided. - Differential Diagnosis herniated disc, radiculopathy, tinea chikis, cellulitis, Critical Care Time: No Critical care attestation.: If time is entered above; I have spent that time in minutes in the direct care of this critically ill patient, excluding procedure time. ED Disposition Clinical Impression: Tinea cruris, Diabetes, Chronic back pain, Degenerative arthritis of lumbar spine, Numbness of anterior thigh, Chronic renal failure Disposition: DC-01 TO HOME OR SELFCARE Is pt being admited?: No Does the pt Need Aspirin: No Condition: Stable Instructions: Diabetes Mellitus Type 2 in Adults (ED), Jock Itch (ED), Degenerative Disc Disease (ED), Impaired Kidney Function (ED) Additional Instructions: Take the medication as prescribed. Follow up with your doctor or the clinic/doctor provided. Return if symptoms worsen as indicated by your discharge instructions It is very important that you follow up with an orthopedic doctor for further treatment and management of your back pain and numbness. It very important that you follow up with a primary care doctor for further monitoring of your skin rash.. Your received a dose of Diflucan here in the emergency department today. Start the prescribed fluconazole/Diflucan next Sunday and take one tablet every Sunday until complete. Prescriptions: Fluconazole [Diflucan TAB] 150 mg PO QWEEK #4 tablet Clotrimazole 1% [Lotrimin 1%] 1 applic TP BID 30 Days tube traMADol [Ultram 50 MG tab] 50 mg PO Q6HR PRN #20 tablet PRN Reason: Pain Referrals: your, primary care doctor [Other] - 3-5 Days SONA PIEDRA MD [Staff Physician] - 3-5 Days (Orthopedic doctor ) Time of Disposition: 16:47
--- NOTE | 2018-09-22 13:06 | XRay Report ---
CLINICAL DATA: lower back pain, b/l thigh numbness TECHNICAL DATA: AP and lateral views lumbar spine. FINDINGS: The bone mineralization is decreased. Multiple compression fractures are present involving the lumbar spine, age difficult to determine. Intervertebral disc spaces are well maintained except for narrowi ng L5-S1. Pedicles and spinous processes are normal in alignment. SI joints and sacrum are normal. IMPRESSION: Multiple compression fractures lumbar spine age difficult to determine. MR would be of benefit for fu rther evaluation Signer Name: Blayne Mckeon MD Signed: 09/22/2018 1:01 PM Workstation Name: [id number]
[2018-09-22 13:28] LABS: Basophils % (Auto) 0.5 % (0.0-1.8); Eosinophils # (Auto) 0.1 K/mm3 (0.0-0.4); Hematocrit 38.5 % (30.3-42.9); Hemoglobin 12.3 gm/dl (10.1-14.3); Lymphocytes % (Auto) 16.7 % (13.4-35.0); Mean Corpuscular HGB Conc 32 % (30-34); Mean Corpuscular Volume 96 fl (79-97); Monocytes # (Auto) 0.8 K/mm3 (0.0-0.8); Monocytes % (Auto) 11.9 % (0.0-7.3); Platelet Count 149 K/mm3 (140-440); Red Blood Count 3.99 M/mm3 (3.65-5.03); Red Cell Distribution Width 14.3 % (13.2-15.2)
[2018-09-22] MEDS ORDERED: DIFLUCAN PO ONE (13:30)
[2018-09-22 13:46] LABS: Calcium 9.5 mg/dL (8.4-10.2)
[2018-09-22 13:53] LABS: Alanine Aminotransferase 8 units/L (7-56); Albumin 4.2 g/dL (3.9-5)
[2018-09-22 14:17] LABS: Bilirubin,Direct < 0.2 mg/dL (0-0.2)
--- NOTE | 2018-09-22 14:19 | Cat Scan Report ---
CT lumbar spine wo con INDICATION / CLINICAL INFORMATION: 67 years Female; back pain (chronic), new b/l anterior thigh numb. TECHNIQUE: Axial CT images of the lumbar spine were obtained. Sagittal and coronal reformatted images were prod uced. All CT scans at this location are performed using CT dose reduction for ALARA by means of autom ated exposure control. COMPARISON: None available. FINDINGS: POST-SURGICAL CHANGES: None. ALIGNMENT: There is dextroscoliosis seen with apex at L2. Straightening of the lumbar spine noted. VERTEBRAE: There is loss of height at virtually every level in the lumbar spine, most findings be rel ated to large Schmorl's node superiorly. These findings may be on a chronic degenerative basis. No de finitive signs of acute compression seen, although STIR imaging by MRI would be the most sensitive te st for evaluating for an acute or subacute injury. [id number] ANALYSIS: Disc space narrowing and desiccation seen at L5-S1. T12-L1: Mild facet hypertrophy. Small, broad-based foraminal disc trusion on the right without signif icant sequela. L1-2: Mild disc bulge and gkhs-uj-qrbtzxbu facet hypertrophy. Mild thecal sac narrowing. Mild forami nal narrowing-findings are slightly greater on the left. There is encroachment upon the left L1 nerve without impingement. L2-3: Mild to moderate disc bulge and jrly-we-tavsppfd facet hypertrophy. Mild to moderate thecal sa c narrowing seen. Mild lateral recess narrowing on the left from disc disease. Moderate foraminal nicole rowing seen bilaterally with encroachment upon L2 nerves. No impingement seen. L3-4: Moderate disc bulge. Broad-based left lateral recess/foraminal/extra foraminal disc protrusion on the right. Bfbt-xh-txyesdcu facet hypertrophy noted. There is moderate thecal sac narrowing and l ateral recess narrowing seen, which could affect descending L4 nerves. Moderate foraminal narrowing i s seen bilaterally - greater on the left. Findings could affect the L3 nerves. L4-5: Mild to moderate disc bulge. Moderate facet borderline ligamentum flavum hypertrophy. Moderate thecal sac narrowing seen. Probable lateral recess narrowing suggested bilaterally. Moderate to art ed foraminal narrowing is seen on the right from disc disease and facet hypertrophy. Moderate noted o n the left. Findings certainly could affect the right L4 nerve. L5-S1: Mild disc bulge. Moderate foraminal narrowing is seen on the left and moderate to marked on t he right from disc disease with spondylosis, combined with facet hypertrophy. There is marked flatten ing of the right L5 nerve. Mild flattening the left L5 nerve noted as well. PARASPINAL SOFT TISSUES: No significant abnormality. ADDITIONAL FINDINGS: Surgical clips seen in the right abdomen. IMPRESSION: 1. Multilevel degenerative changes of the lumbar spine as described above. Exiting and/or descending nerve roots could be affected at multiple levels. Please correlate with dermatomal distribution of pa camryn's symptoms, if present. Signer Name: Kali Joseph MD, III Signed: 09/22/2018 2:15 PM Workstation Name: [id number]
[2018-09-22] MEDS ORDERED: ULTRAM PO ONE (15:50)
[2018-09-22 17:52] VITALS: BP 127/76
== END 2018-09-22 18:39 | disposition home or self-care (01) ==
LOC: ED 11:06
DX: B35.6 Tinea cruris (principal); E11.9 Type 2 diabetes mellitus without complications; M46.96 Unspecified inflammatory spondylopathy, lumbar region; R20.0 Anesthesia of skin; G89.29 Other chronic pain; M54.9 Dorsalgia, unspecified; I13.0 Hypertensive heart and chronic kidney disease with heart failure and stage 1 through stage 4 chronic kidney disease, or unspecified chronic kidney disease; E11.22 Type 2 diabetes mellitus with diabetic chronic kidney disease; N18.9 Chronic kidney disease, unspecified; I50.9 Heart failure, unspecified; J45.909 Unspecified asthma, uncomplicated; E78.00 Pure hypercholesterolemia, unspecified; Z79.4 Long term (current) use of insulin; Z98.51 Tubal ligation status; Z79.899 Other long term (current) drug therapy; Z79.82 Long term (current) use of aspirin
CPT/HCPCS: 36415; 72100; 72131; 80048; 80076; 83735; 85025; 93005; 93010; 99285

== ENCOUNTER 2018-12-04 14:37 | Outpatient (CLI) | payer MEDICARE ==
--- NOTE | 2018-12-04 16:15 | Mammography Report ---
DIGITAL SCREENING MAMMOGRAM WITH CAD, 12/04/2018 INDICATION: Routine screening mammography. History of a benign right surgical biopsy in 1991. TECHNIQUE: Digital bilateral 2D mammography was obtained in the craniocaudal and mediolateral obliq ue projections. This examination was interpreted with the benefit of Computer-Aided Detection analysi s. COMPARISON: 11/26/2017 FINDINGS: Breast Density: There are scattered areas of fibroglandular density. There is no evidence of dominant mass, suspicious calcifications or architectural distortion in eithe r breast. A few bilateral benign calcifications. Minimal right upper periareolar postsurgical scar. IMPRESSION: No mammographic evidence of malignancy. Follow up recommendation: Routine yearly BI-RADS Category 2: Benign. A "normal" or negative report should not discourage follow up or biopsy of a clinically significant f inding. A written summary of these findings will be mailed to the patient. The patient will be entered into a mammography reporting system which will generate a reminder letter for the patient's next appointmen t at the appropriate interval. The [employer] recommends yearly mammograms starting at age 40 and continuing as l fahad as a woman is in good health. Breast MRI is recommended for women with an approximate 20-25% or greater lifetime risk of breast cancer, including women with a strong family history of breast or ova sagar cancer or who have been treated for Hodgkin's disease. Signer Name: Dayday Clay MD Signed: 12/04/2018 4:10 PM Workstation Name: [id number]
== END 2018-12-04 14:38 | disposition home or self-care (01) ==
LOC: MAMMO 14:37
PROVIDERS: ATTEND Internal Medicine
DX: Z12.31 Encounter for screening mammogram for malignant neoplasm of breast (principal)
CPT/HCPCS: 77067

== ENCOUNTER 2021-10-21 11:43 | Outpatient (CLI) | payer MEDICARE ==
--- NOTE | 2021-10-24 10:30 | Mammography Report ---
DIGITAL SCREENING MAMMOGRAM WITH CAD, 10/21/2021 CLINICAL INFORMATION / INDICATION: Routine screening mammography. SCREENING MAMMOGRAM Z12.31 TECHNIQUE: Digital bilateral 2D mammography was obtained in the craniocaudal and mediolateral obliqu e projections. This examination was interpreted with the benefit of Computer-Aided Detection analysis . COMPARISON: 12/04/2018. FINDINGS: Breast Density: The breasts are almost entirely fatty. No dominant mass, suspicious calcifications, or architectural distortion in either breast. IMPRESSION: No mammographic evidence of malignancy. Follow up recommendation: Routine yearly screening mammogram. BI-RADS Category 1: NEGATIVE A "normal" or negative report should not discourage follow up or biopsy of a clinically significant f inding. A written summary of these findings will be mailed to the patient. The patient will be entered into a mammography reporting system which will generate a reminder letter for the patient's next appointmen t at the appropriate interval. The [employer] recommends yearly mammograms starting at age 40 and continuing as l fahad as a woman is in good health. Breast MRI is recommended for women with an approximate 20-25% or greater lifetime risk of breast cancer, including women with a strong family history of breast or ova sagar cancer or who have been treated for Hodgkin's disease. Signer Name: Misael Ortiz MD Signed: 10/24/2021 10:26 AM Workstation Name: [id number]
== END 2021-10-21 11:44 | disposition home or self-care (01) ==
LOC: MAMMO 11:43
DX: Z12.31 Encounter for screening mammogram for malignant neoplasm of breast (principal)
CPT/HCPCS: 77067